=== PATIENT | female | born 1950 | race Caucasian/White ===

== ENCOUNTER 2019-08-26 06:21 | Emergency (ER) | payer MEDICARE, OTHER ==
[~2019-08-26] VITALS: Ht 170.2 cm; Wt 71.9 kg
--- NOTE | 2019-08-26 07:11 | NUR ---
chief analytics officer: Pt to ED room 21 from lobby at this time
--- NOTE | 2019-08-26 07:19 | NUR ---
PT IN XRAY AT THIS TIME.
--- NOTE | 2019-08-26 07:32 | NUR ---
FIRST CONTACT WITH PT. PT C/O PAIN ON RIGHT AND LEFT ABD, MORE ON THE LEFT X 1 DAY. N/V/D X 7 DAYS. PT'S AOX4. RESPS EVEN AND UNLABORED. DENIES CP/SOB. BP/SPO2 MONITORS IN PLACE. CALL LIGHT WITHIN REACH. PA AT BEDSIDE TO EVALUATE AT THIS TIME.
[2019-08-26 07:45] LABS: BASOPHILS # (AUTO) 0.03 x10^3/uL (0-0.1); BASOPHILS % (AUTO) 1 % (0-1); EOSINOPHILS # (AUTO) 0.03 x10^3/uL (0-0.4); EOSINOPHILS % (AUTO) 0 % (1-7); LYMPHOCYTES # (AUTO) 0.72 x10^3/uL (1-3.4); LYMPHOCYTES % (AUTO) 10 % (22-44); MD NO; MEAN CORPUSCULAR HEMOGLOBIN 36.6 pg (27.0-34.8); MEAN CORPUSCULAR HGB CONC 33.8 g/dL (32.4-35.8); MEAN CORPUSCULAR VOLUME 108.4 fL (80-100); MEAN PLATELET VOLUME 6.6 fL (7.4-10.4); MONOCYTES # (AUTO) 0.54 x10^3/uL (0.2-0.8); MONOCYTES % (AUTO) 8 % (2-9); NEUTROPHILS # (AUTO) 5.71 x10^3/uL (1.8-6.8); NEUTROPHILS % (AUTO) 81 % (42-75); PLATELET COUNT 189 x10^3/uL (130-400); RED BLOOD COUNT 4.28 x10^6/uL (3.82-5.3); RED CELL DISTRIBUTION WIDTH 14.3 % (9.6-15.2)
[2019-08-26 07:54] LABS: ALANINE AMINOTRANSFERASE 90 U/L (12-78); ALBUMIN 3.3 g/dL (3.4-5.0); ANION GAP 13 mmol/L (5-15); CALCIUM 8.6 mg/dL (8.5-10.1); CHLORIDE 108 mmol/L (98-107); CREATININE 1.02 mg/dL (0.55-1.02)
--- NOTE | 2019-08-26 07:56 | NUR ---
PT AMB TO BR AND BACK TO ROOM WITH STEADY GAIT. UA COLLECTED AND SENT.
[2019-08-26 07:57] LABS: ALKALINE PHOSPHATASE 99 U/L (45-117); BILIRUBIN,TOTAL 1.1 mg/dL (0.2-1.0); TOTAL PROTEIN 7.5 g/dL (6.4-8.2)
[2019-08-26] MEDS ORDERED: SODIUM CHLORIDE FLUSH 10ML SYR IVF ONE (08:00)
--- NOTE | 2019-08-26 08:34 | NUR ---
pt in ct at this time.
[2019-08-26 08:36] LABS: MICROSCOPIC INDICATED
[2019-08-26 08:37] LABS: CULTURE INDICATED? YES
[2019-08-26] MEDS ORDERED: OMNIPAQUE 350 MG/ML, 100ML BOTTLE ONE (08:40)
--- NOTE | 2019-08-26 08:41 | NUR ---
PT BACK TO ROOM FROM CT AT THIS TIME.
[2019-08-26] MEDS ORDERED: SODIUM CHLORIDE 0.9% 1,000ML IVBOLUS ONE (09:00)
--- NOTE | 2019-08-26 09:10 | NUR ---
NS INFUSING AT THIS TIME. PT TOLERATED WELL.
[2019-08-26] MEDS ORDERED: METRONIDAZOLE PMX 500MG/100ML 100 ML ONE (09:43)
--- NOTE | 2019-08-26 09:49 | NUR ---
ABX INFUSING AT THIS TIME. NO BLOOD CULTURE NEEDED PER EDMD. PT TOLERATED WELL.
[2019-08-26] MEDS ORDERED: METRONIDAZOLE PMX 500MG/100ML 100 ML IV ONE (10:00)
[2019-08-26] MEDS ORDERED: CEFOTETAN PMX 2GM/50ML 50 ML IV ONE (10:00)
--- NOTE | 2019-08-26 10:51 | NUR ---
REPORT RECEIVED FROM LORENA FLOWER.
[2019-08-26 10:55] VITALS: BP 128/80
--- NOTE | 2019-08-26 10:55 | NUR ---
2ND ABX INFUSING AT THIS TIME. PT TOLERATED WELL.
--- NOTE | 2019-08-26 12:24 | NUR ---
Patient given discharge instructions and they have confirmed that they understand the instructions. Patient ambulatory with steady gait.
== END 2019-08-26 12:26 | disposition home or self-care (01) ==
LOC: ED 08:12
DX: K57.32 Diverticulitis of large intestine without perforation or abscess without bleeding (principal); R11.2 Nausea with vomiting, unspecified; R10.32 Left lower quadrant pain
CPT/HCPCS: 36415; 74021; 74177; 80053; 81001; 83690; 85025; 87086; 96361; 96365; 96367; 99284; J3490; J7030; Q9967

== ENCOUNTER 2020-10-15 09:16 | Inpatient (IN) | payer MEDICARE, OTHER ==
[~2020-10-15] VITALS: Ht 170.2 cm; Wt 72.1 kg
--- NOTE | 2020-10-15 09:43 | NUR ---
first contact with pt. pt states "i haven't eaten any for 14 days and having abdominal discomfort with nausea and vomitting since 10/05. I also can't controle my bowel movement. i had a bad diahhrea all day yesterday. i peed middle of the night and it looked like blood in my urine." pt's aox4. resps even and unlabored. bp/spo2 monitors in place. call light within reach. warm blanket given. urine cup in room. pt states ' i can't pee now."
[2020-10-15] MEDS ORDERED: SODIUM CHLORIDE 0.9% 1,000ML IVBOLUS ONE (10:30)
[2020-10-15 10:49] LABS: BASOPHILS % (AUTO) 1 % (0-1); EOSINOPHILS % (AUTO) 1 % (1-7); LYMPHOCYTES % (AUTO) 14 % (22-44); MEAN CORPUSCULAR HEMOGLOBIN 38.9 pg (27.0-34.8); MEAN CORPUSCULAR HGB CONC 34.7 g/dL (32.4-35.8); MEAN PLATELET VOLUME 7.6 fL (7.4-10.4); MONOCYTES % (AUTO) 8 % (2-9); NEUTROPHILS % (AUTO) 77 % (42-75); PLATELET COUNT 77 x10^3/uL (130-400); RED BLOOD COUNT 3.35 x10^6/uL (3.82-5.3); RED CELL DISTRIBUTION WIDTH 14.8 % (9.6-15.2)
[2020-10-15 10:50] LABS: MD NO
--- NOTE | 2020-10-15 10:52 | NUR ---
report given to cornelia/sammy isidro.
[2020-10-15 10:55] LABS: ALANINE AMINOTRANSFERASE 94 U/L (12-78); ALBUMIN 2.9 g/dL (3.4-5.0); ANION GAP 9 mmol/L (5-15); CALCIUM 8.6 mg/dL (8.5-10.1); CHLORIDE 96 mmol/L (98-107); CREATININE 0.79 mg/dL (0.55-1.02)
[2020-10-15 10:57] LABS: ALKALINE PHOSPHATASE 102 U/L (45-117); BILIRUBIN,TOTAL 1.7 mg/dL (0.2-1.0); TOTAL PROTEIN 6.4 g/dL (6.4-8.2)
--- NOTE | 2020-10-15 11:10 | NUR ---
PT JUST GOT DONE TALKING TO MD. LYING IN BED. VITALS STABLE. CALL LIGHT WITHIN REACH.
--- NOTE | 2020-10-15 11:29 | NUR ---
PT OFF UNIT IN IMAGING.
[2020-10-15] MEDS ORDERED: OMNIPAQUE 350 MG/ML, 100ML BOTTLE ONE (11:42)
[2020-10-15 11:58] LABS: MICROSCOPIC INDICATED
[2020-10-15] MEDS ORDERED: CEFTRIAXONE PMX 2GM/50ML 50 ML IVPB ONE (12:30)
[2020-10-15] MEDS ORDERED: CEFTRIAXONE PMX 2GM/50ML 50 ML ONE (12:38)
--- NOTE | 2020-10-15 12:55 | NUR ---
ADMITTING MD AT BEDSIDE.
--- NOTE | 2020-10-15 13:22 | NUR ---
REPORT TO VONNIE FLOWER.
[2020-10-15] MEDS ORDERED: morphine SULFATE 10 MG/ML, 1ML IVPush PRN (13:30)
[2020-10-15] MEDS ORDERED: hydrALAzine 20 MG/ML, 1ML IVPush PRN (13:30)
[2020-10-15] MEDS ORDERED: DOCUSATE 100 MG CAPSULE PO PRN (13:30)
[2020-10-15] MEDS ORDERED: ONDANSETRON 2MG/ML, 2ML IVPush PRN (13:30)
[2020-10-15] MEDS ORDERED: GLUCAGON 1 MG IM PRN (13:30)
[2020-10-15] MEDS ORDERED: LORazepam 2 MG/ML, 1ML IVPush PRN (13:30)
[2020-10-15] MEDS ORDERED: DEXTROSE 50%, 50ML SYRINGE IVPush PRN (13:30)
[2020-10-15] MEDS ORDERED: LABETALOL 5MG/ML, 20ML IVPush PRN (13:30)
[2020-10-15] MEDS ORDERED: ONDANSETRON ODT 4 MG PO PRN (13:30)
[2020-10-15] MEDS ORDERED: DEXTROSE 4 GM TAB.CHEW PO PRN (13:30)
[2020-10-15] MEDS: SODIUM CHLORIDE 0.9% 1,000 ML IV SCH ×2 (13:47→20:53)
[2020-10-15 13:53] VITALS: BP 138/93
[2020-10-15 14:24] VITALS: BP 138/93
[2020-10-15] MEDS: ENOXAPARIN 40 MG/0.4 ML SQ SCH (14:30)
[2020-10-15] MEDS: CHLORDIAZEPOXIDE 25 MG CAPSULE PO SCH (18:30)
[2020-10-15 19:01] VITALS: BP 117/78
[2020-10-15] MEDS: THIAMINE 100 MG in SODIUM CHLORIDE 0.9% 50 ML IV SCH (19:42)
[2020-10-15] MEDS: SODIUM CHLORIDE FLUSH 10ML SYR IVF SCH (20:53)
[2020-10-16] MEDS: CHLORDIAZEPOXIDE 25 MG CAPSULE PO SCH ×2 (00:09→05:46)
[2020-10-16 02:40] VITALS: BP 115/75
[2020-10-16] MEDS: SODIUM CHLORIDE 0.9% 1,000 ML IV SCH ×4 (03:14→23:18)
[2020-10-16 05:43] LABS: BASOPHILS % (AUTO) 1 % (0-1); EOSINOPHILS % (AUTO) 3 % (1-7); LYMPHOCYTES % (AUTO) 21 % (22-44); MEAN CORPUSCULAR HEMOGLOBIN 39.1 pg (27.0-34.8); MEAN CORPUSCULAR HGB CONC 34.4 g/dL (32.4-35.8); MEAN PLATELET VOLUME 7.2 fL (7.4-10.4); MONOCYTES % (AUTO) 9 % (2-9); NEUTROPHILS % (AUTO) 67 % (42-75); PLATELET COUNT 78 x10^3/uL (130-400); RED BLOOD COUNT 2.75 x10^6/uL (3.82-5.3); RED CELL DISTRIBUTION WIDTH 14.9 % (9.6-15.2)
[2020-10-16 05:56] LABS: CALCIUM 7.6 mg/dL (8.5-10.1); CHLORIDE 106 mmol/L (98-107)
[2020-10-16 06:02] LABS: ALANINE AMINOTRANSFERASE 65 U/L (12-78); ALBUMIN 2.2 g/dL (3.4-5.0); ALKALINE PHOSPHATASE 79 U/L (45-117); ANION GAP 10 mmol/L (5-15); BILIRUBIN,TOTAL 0.9 mg/dL (0.2-1.0); CREATININE 0.57 mg/dL (0.55-1.02); TOTAL PROTEIN 5.1 g/dL (6.4-8.2)
[2020-10-16 06:38] LABS: MD SCAN
[2020-10-16 07:41] VITALS: BP 135/89
[2020-10-16] MEDS: SODIUM CHLORIDE FLUSH 10ML SYR IVF SCH ×2 (09:00→20:40)
[2020-10-16] MEDS ORDERED: CEFTRIAXONE PMX 1GM/50ML 50 ML IV SCH (12:30)
[2020-10-16 12:43] VITALS: BP 128/84
[2020-10-16] MEDS: ENOXAPARIN 40 MG/0.4 ML SQ SCH (13:06)
[2020-10-16] MEDS ORDERED: POTASSIUM CHLORIDE 20 MEQ TAB.ER.PRT PO ONE (13:30)
[2020-10-16] MEDS: THIAMINE 100 MG in SODIUM CHLORIDE 0.9% 50 ML IV SCH (18:31)
[2020-10-16 19:19] VITALS: BP 136/80
[2020-10-17 01:10] VITALS: BP 124/88
[2020-10-17 05:38] LABS: BASOPHILS % (AUTO) 2 % (0-1); EOSINOPHILS % (AUTO) 3 % (1-7); LYMPHOCYTES % (AUTO) 27 % (22-44); MEAN CORPUSCULAR HEMOGLOBIN 39.2 pg (27.0-34.8); MEAN CORPUSCULAR HGB CONC 34.8 g/dL (32.4-35.8); MEAN PLATELET VOLUME 6.8 fL (7.4-10.4); MONOCYTES % (AUTO) 13 % (2-9); NEUTROPHILS % (AUTO) 56 % (42-75); PLATELET COUNT 90 x10^3/uL (130-400); RED BLOOD COUNT 2.69 x10^6/uL (3.82-5.3); RED CELL DISTRIBUTION WIDTH 14.8 % (9.6-15.2)
[2020-10-17 05:44] LABS: MD NO
[2020-10-17 05:47] LABS: ALBUMIN 2.1 g/dL (3.4-5.0); ANION GAP 8 mmol/L (5-15); CALCIUM 7.5 mg/dL (8.5-10.1); CHLORIDE 111 mmol/L (98-107)
[2020-10-17 05:50] LABS: ALANINE AMINOTRANSFERASE 58 U/L (12-78); ALKALINE PHOSPHATASE 80 U/L (45-117); BILIRUBIN,TOTAL 0.8 mg/dL (0.2-1.0); CREATININE 0.59 mg/dL (0.55-1.02); TOTAL PROTEIN 4.9 g/dL (6.4-8.2)
[2020-10-17] MEDS: SODIUM CHLORIDE 0.9% 1,000 ML IV SCH (05:53)
[2020-10-17 07:51] VITALS: BP 145/91
[2020-10-17] MEDS: SODIUM CHLORIDE FLUSH 10ML SYR IVF SCH (09:18)
== END 2020-10-17 11:15 | disposition home or self-care (01) | DRG 689 ==
LOC: ED 09:26 → EDIP 12:32 → 3N 13:55 → DCLOUNGE 10-17 11:11
PROVIDERS: ADMIT Internal Medicine; ATTEND Internal Medicine
DX: N39.0 Urinary tract infection, site not specified (principal); K85.20 Alcohol induced acute pancreatitis without necrosis or infection; E87.1 Hypo-osmolality and hyponatremia; D69.6 Thrombocytopenia, unspecified; D72.819 Decreased white blood cell count, unspecified; D75.89 Other specified diseases of blood and blood-forming organs; E86.0 Dehydration; R15.9 Full incontinence of feces; R60.9 Edema, unspecified; K52.9 Noninfective gastroenteritis and colitis, unspecified; Z80.3 Family history of malignant neoplasm of breast; Z80.41 Family history of malignant neoplasm of ovary; Z80.8 Family history of malignant neoplasm of other organs or systems
CPT/HCPCS: 36415; 71045; 74177; 80053; 81001; 82378; 83690; 83735; 84100; 85025; 87077; 87086; 87186; 96360; G0378; J0696; J2405; J3411; Q9967; J7030